=== PATIENT | female | born 1965 | race African-American/Black ===

== ENCOUNTER → 2018-02-14 | Day surgery (SDC) | payer MEDICAID ==
[~2018-02-14] MED LIST: LIDOCAINE HCL/EPINEPHRINE 1%-EPI 1:100,000 30 ML VIAL INFIL ONE; SODIUM BICARBONATE 4% (2.4MEQ) 5ML VIAL IV ONE
== END ==
LOC: RAD 11:07
PROVIDERS: ATTEND Family Medicine
DX: N60.12 Diffuse cystic mastopathy of left breast (principal); R92.0 Mammographic microcalcification found on diagnostic imaging of breast
CPT/HCPCS: 19083; 88305; A4648; J3490